=== PATIENT | female | born 1975 | race Caucasian/White ===

== ENCOUNTER → 2020-07-20 16:16 | Outpatient (CLI) | payer BC, SELFPAY ==
--- NOTE | ~2020-07-20 | MM_ITS ---
EXAMINATION: MM screening [facility] BI w mauricio HISTORY: Screening mammogram TECHNIQUE: Craniocaudal and mediolateral oblique 3-D tomosynthesis images were obtained and synthetic 2-D images were generated. CAD analysis was submitted and interpreted. COMPARISON: 04/30/2019 through 01/08/2016 bilateral digital screening mammogram examinations BREAST PARENCHYMAL COMPOSITION: There are scattered areas of fibroglandular density. FINDINGS: There is no evidence of suspicious mass, calcification, or architectural distortion to sugg est malignancy in either breast. There has been no suspicious interval change. IMPRESSION: 1. No mammographic evidence of malignancy. 2. Recommend routine screening mammography in one year. BI-RADS Category 1: Negative Reviewed, dictated and finalized at location A. CUTTER
== END ==
PROVIDERS: PCP Nurse Practitioner Adult Health; Visit Provider Nurse Practitioner Adult Health
DX: Z12.31 Encounter for screening mammogram for malignant neoplasm of breast (principal)
CPT/HCPCS: 77063; 77067

== ENCOUNTER 2021-01-02 16:40 | Outpatient (CLI) | payer BC, SELFPAY ==
[2021-01-02 17:54] LABS: SARS-CoV-2 RNA PCR Negative (Negative)
== END 2021-01-02 16:41 | disposition home or self-care (01) ==
LOC: CHSLAB 16:45
PROVIDERS: PCP Nurse Practitioner Adult Health; Visit Provider Nurse Practitioner Adult Health
DX: Z20.822 Contact with and (suspected) exposure to COVID-19 (principal)
CPT/HCPCS: C9803; U0003; U0005

== ENCOUNTER 2022-01-17 01:38 | Day surgery (SDC) | payer BC, SELFPAY ==
[2022-01-03 15:41] VITALS: BMI 24.0
--- NOTE | 2022-01-16 13:46 | PM.HPGS ---
History of Present Illness History of Present Illness Consent: Risks, benefits, and alternatives have been discussed and questions answered. Patient agrees to proceed with procedure. Chief complaint: neoplasm screening Narrative: Lucila Dumont is a 46 year old female Referred for colon cancer screening. Review of Systems Review of Systems: All systems reviewed & are unremarkable except as noted in HPI and below PMFSH Social History Social History Smoking status: Never smoker Alcohol intake: current Alcohol use details: occasional Substance use: never Substance use type: does not use Spiritual care concerns: No Meds Home Medications and Allergies Home Medications Medication Instructions Recorded Confirmed Type alprazolam 0.25 mg tablet 0.25 mg PO PRN PRN Anxiety 01/03/22 01/03/22 History estradiol 1 mg tablet 1 mg PO DAILY 01/03/22 01/03/22 History fluoxetine 20 mg capsule 20 mg PO DAILY 01/03/22 01/03/22 History medroxyprogesterone 2.5 mg tablet 2.5 mg PO DAILY 01/03/22 01/03/22 History Allergies Allergy/AdvReac Type Severity Reaction Status Date / Time meperidine [From Demerol] Allergy Hives Verified 01/17/22 11:18 morphine Allergy HIVES Verified 01/17/22 11:18 Exam Const: General: alert Orientation/consciousness: patient oriented x3 Resp: Auscultation: clear to auscultation bilaterally Cardio: Rhythm: regular rhythm GI: GI Palp: Yes Soft to palpation and No Tenderness to palpation present (GI) Neuro: General: patient oriented x3 Assessment and Plan Assessment and plan (1) Colon cancer screening: Code(s): Z12.11 - Encounter for screening for malignant neoplasm of colon Status: Acute Assessment and Plan: Colonoscopy with possible biopsy or polypectomy or cautery or injection of substances.
[2022-01-17 11:19] VITALS: BP 105/71; PULSE 77; RESP 18; TEMP 36.3; O2SAT 99
[2022-01-17] MEDS: LACTATED RINGERS 1,000 ML 150 ML IV CONT (11:22)
--- NOTE | 2022-01-17 12:28 | P.PNAN_ITS ---
Anes - Initial Pre Proc Eval Procedure: Operation Date: 01/17/22 12:30 Proposed Procedures p Screening Colonoscopy - Guido Lora MD Date/Time: 01/17/22 12:28 Surgeon: Guido oLra MD Pre Op Diagnosis: neoplasm screening Patient Data Age: 46 Gender: F Height: 1.63 m Weight: 63.5 kg Last Vital Signs Temp 97.3 F L 01/17/22 11:19 Pulse 77 01/17/22 11:19 Resp 18 01/17/22 11:19 BP 105/71 01/17/22 11:19 Pulse Ox 99 01/17/22 11:19 O2 Del Method Room Air 01/17/22 11:19 Allergies Allergy/AdvReac Type Severity Reaction Status Date / Time meperidine [From Demerol] Allergy Hives Verified 01/17/22 11:18 morphine Allergy HIVES Verified 01/17/22 11:18 Home Medications Medication Instructions Recorded Confirmed Type alprazolam 0.25 mg tablet 0.25 mg PO PRN PRN Anxiety 01/03/22 01/03/22 History estradiol 1 mg tablet 1 mg PO DAILY 01/03/22 01/03/22 History fluoxetine 20 mg capsule 20 mg PO DAILY 01/03/22 01/03/22 History medroxyprogesterone 2.5 mg tablet 2.5 mg PO DAILY 01/03/22 01/03/22 History Patient hx anesthesia problems: none Family hx anesthesia problems: none Results Review: All pre-operative results and documents have been reviewed as part of the pre- operative evaluation. [facility] Social History Social History Smoking status: Never smoker Alcohol intake: current Alcohol use details: occasional Substance use: never Substance use type: does not use Living arrangements: with family Spiritual care concerns: No Anes - Eval Final PreProcedure Day of Procedure 01/17/22 12:28 Patient weight: normal Heart: regular rate and rhythm Lungs: clear to auscultation Airway: Mallampati scale class II Neurological: alert and oriented Last oral intake: >/= 8 hours ASA classification: II Emergent: no Anesthetic plan: proceed Anesthesia type and monitoring: general GIVS and standard monitoring Results Review: All pre-operative results and documents have been reviewed as part of the pre- operative evaluation. Informed Consent: The patient's anesthetic plan and its attendant risks and benefits were discussed with the patient/family/POA. Questions were solicited and answers provided to the satisfaction of the patient/family/POA.
[2022-01-17 12:44] VITALS: BP 93/56; PULSE 58; RESP 19; O2SAT 100
[2022-01-17 12:54] VITALS: BP 125/55; PULSE 58; RESP 17; O2SAT 100
[2022-01-17 13:04] VITALS: BP 125/55; PULSE 55; RESP 18; O2SAT 100
== END 2022-01-17 13:09 | disposition home or self-care (01) ==
PROVIDERS: PCP Nurse Practitioner Adult Health; Visit Provider Internal Medicine Gastroenterology
PROC: 0DJD8ZZ Inspection of Lower Intestinal Tract, Via Natural or Artificial Opening Endoscopic (ICD-10-PCS; CPT 45378; principal; 2022-01-17 12:30)
DX: Z12.11 Encounter for screening for malignant neoplasm of colon (principal); K64.8 Other hemorrhoids
CPT/HCPCS: 45378; J2704; J7120

== ENCOUNTER → 2022-06-06 12:45 | Outpatient (CLI) | payer BC, SELFPAY ==
--- NOTE | ~2022-06-06 | MM_ITS ---
EXAMINATION: MM screening [facility] BI w mauricio HISTORY: Screening mammogram TECHNIQUE: Craniocaudal and mediolateral oblique 3-D tomosynthesis images were obtained and synthetic 2-D images were generated. CAD analysis was submitted and interpreted. COMPARISON: 07/20/2020, 04/30/2019, 11/06/2017 BREAST PARENCHYMAL COMPOSITION: There are scattered areas of fibroglandular density. FINDINGS: RIGHT BREAST: There is possible architectural distortion in the middle third of the slightly outer br east best appreciated 6 cm from the nipple on the craniocaudal view. In addition, there is an asymmet ry in the middle breast 6 cm from the nipple on the mediolateral oblique view. LEFT BREAST: No suspicious mass, calcification, or architectural distortion are identified to suggest malignancy. There has been no suspicious interval change. IMPRESSION: 1. Right breast findings as described above. 2. Additional mammographic views and possible breast ultrasound are recommended. BI-RADS Category 0: Incomplete: Needs additional imaging evaluation. Reviewed, dictated and finalized at location A. KEEPER IMPRESSION: 1. Right breast findings as described above. 2. Additional mammographic views and possible breast ultrasound are recommended . BI-RADS Category 0: Incomplete: Needs additional imaging evaluation.
== END ==
PROVIDERS: PCP Nurse Practitioner Obstetrics & Gynecology; Visit Provider Nurse Practitioner Obstetrics & Gynecology
DX: Z12.31 Encounter for screening mammogram for malignant neoplasm of breast (principal)
CPT/HCPCS: 77063; 77067

== ENCOUNTER → 2022-07-04 07:51 | Outpatient (CLI) | payer BC, SELFPAY ==
--- NOTE | ~2022-07-04 | MMUS_ITS ---
EXAMINATION: MM diagnostic juan [facility]on RT w mauricio, US breast RT limited HISTORY: Possible architectural distortion in middle third of slightly outer right breast 6 cm from n ipple on craniocaudal screening view of 06/06/2022 TECHNIQUE: Additional 3-D tomosynthesis images of the right breast were performed and synthetic 2-D i mages were generated. Rolled medial and rolled lateral craniocaudal views. CAD analysis was submitted and interpreted. Upper outer and lower-outer quadrant right breast ultrasound examination was performed. COMPARISON: 06/06/2022ilateral screening mammogram FINDINGS: Right diagnostic mammogram: No suspicious mass or architectural distortion is detected. No malignant calcification, skin thickening or retraction. Right upper outer and lower-outer quadrant breast ultrasound: 11:00 4 cm from nipple: Parallel circumscribed hypoechoic lesion without internal vascularity or post erior shadowing, benign in appearance 12:00 3 cm from nipple: Parallel circumscribed multiply septated cyst measuring 4.3 x 6.6 x 9.1 mm 1:00 3 cm from nipple: 3 x 5.6 x 5.8 mm multi septated cyst 11:00 3 cm from nipple: Parallel circumscribed hypoechoic 4.9 x 1.5 x 3 mm lesion without internal va scularity or posterior shadowing, benign in appearance 10:00 6 cm from nipple: Benign-appearing lymph node measuring 3.6 x 5.1 x 4.9 mm No suspicious mass or shadowing is noted in the upper outer or lower outer quadrants of the right manisha ast. IMPRESSION: 1. Benign findings 2. Routine mammographic screening is recommended BI-RADS Category 2: Benign finding(s). Reviewed, dictated and finalized at location A. GER HELPDESK IMPRESSION: 1. Benign findings 2. Routine mammographic screening is recommended BI-RADS Category 2: Benign finding(s).
== END ==
PROVIDERS: PCP Nurse Practitioner Obstetrics & Gynecology; Visit Provider Nurse Practitioner Obstetrics & Gynecology
DX: R92.8 Other abnormal and inconclusive findings on diagnostic imaging of breast (principal)
CPT/HCPCS: 76642; 77061; 77065; G0279

== ENCOUNTER 2024-07-21 12:43 | Outpatient (CLI) | payer BC, SELFPAY ==
--- NOTE | ~2024-07-21 | MM_ITS ---
EXAMINATION: MM screening [facility] BI w mauricio HISTORY: Screening mammogram TECHNIQUE: Craniocaudal and mediolateral oblique 3-D tomosynthesis images were obtained and synthetic 2-D images were generated. CAD analysis was submitted and interpreted. COMPARISON: 07/04/2022, 06/06/2022, 07/20/2020, 04/30/2019 BREAST PARENCHYMAL COMPOSITION:Not Dense. There are scattered areas of fibroglandular density. FINDINGS: No suspicious mass, calcification, or architectural distortion are identified in either manisha ast to suggest malignancy. There has been no suspicious interval change. IMPRESSION: No mammographic evidence of malignancy. Recommend routine screening mammography in one year. BI-RADS Category 1: Negative Reviewed, dictated and finalized at location .
== END 2024-07-21 12:44 | disposition home or self-care (01) ==
PROVIDERS: PCP Student in an Organized Health Care Education/Training Program
DX: Z12.31 Encounter for screening mammogram for malignant neoplasm of breast (principal)
CPT/HCPCS: 77063; 77067